=== PATIENT | female | born 1975 | race American Indian/Alaskan Native ===

== ENCOUNTER 2018-10-05 05:55 | Emergency (ER) | payer OTHER, MEDICAID ==
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
[2018-10-05] MEDS ORDERED: FLEXERIL PO ONE (07:55)
[2018-10-05] MEDS ORDERED: MOTRIN PO ONE (07:55)
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
--- NOTE | 2018-10-05 08:57 | XRay Report ---
BILATERAL RIBS, 4 views: History: Pain with inspiration. Routine views of the rib cage demonstrate normal mineralization with no significant contour abnormalities, fractures or destructive lesions. PA view of the chest demonstrates no underlying cardiopulmonary abnormalities, fluid or pneumothorax. IMPRESSION: Normal bilateral ribs.
[2018-10-05 09:21] VITALS: BP 115/74
== END 2018-10-05 09:19 | disposition home or self-care (01) ==
LOC: ED 05:55
DX: M54.2 Cervicalgia (principal); M54.89 Other dorsalgia; M25.512 Pain in left shoulder; Z88.8 Allergy status to other drugs, medicaments and biological substances; V89.2XXA Person injured in unspecified motor-vehicle accident, traffic, initial encounter; Y93.89 Activity, other specified; Y92.410 Unspecified street and highway as the place of occurrence of the external cause; Y99.8 Other external cause status
CPT/HCPCS: 71111; 99283